=== PATIENT | female | born 1985 | race African-American/Black ===

== ENCOUNTER 2020-01-03 13:15 | Outpatient (CLI) | payer OTHER, SELFPAY ==
--- NOTE | ~2020-01-03 | US_ITS ---
EXAMINATION: US thyroid DATE: 01/03/2020 14:10 INDICATION: Multinodular goiter. TECHNIQUE: Multiple ultrasound images of the thyroid were obtained. COMPARISON: Ultrasound 10/29/2018 FINDINGS: The right thyroid lobe measures 5.1 x 0.8 x 1.7 cm. The left thyroid lobe measures 5.0 x 0.9 x 1.6 c m. There are multiple nodules in the thyroid measuring up to 4 mm. IMPRESSION: 1. Small thyroid nodules, likely not clinically significant. No follow-up is needed. Reviewed, dictated and finalized at location B. IMPRESSION: 1. Small thyroid nodules, likely not clinically significant. No follow-up is ne eded.
== END 2020-01-03 13:16 ==
PROVIDERS: Visit Provider Internal Medicine Endocrinology, Diabetes & Metabolism
DX: E04.2 Nontoxic multinodular goiter (principal)
CPT/HCPCS: 76536

== ENCOUNTER 2020-10-17 09:58 | Emergency (ER) | payer OTHER, SELFPAY ==
--- NOTE | ~2020-10-17 | US_ITS ---
EXAMINATION: US OB >= 14 weeks Fetus DATE: 10/17/2020 11:21 INDICATION: Left lower quadrant pain TECHNIQUE: Real-time ultrasound of the pelvis was performed. COMPARISON: None. FINDINGS: There is a single living fetus in breech presentation. The placenta is anterior. heart rate is 150 beats per minute (bpm). cardiac activity and movement are noted. The amniotic fluid index is subjectively normal. The right ovary measures 1.4 x 3.1 x 1.5 cm. The left ovary measures 1.8 x 3.5 x 1.9 cm and contains a cyst. There is normal vascular flow to the ovaries. The following biometric data were obtained: Biparietal diameter (BPD): 4.0 cm; head circumference (HC): 14.8 cm; abdominal circumference (AC): 12 .9 cm; femur length (FL): 2.4 cm. These measurements are concordant. Estimated weight is 220 g +/- 33 g, which correlates with the 88th percentile when 03/25/2021 i s used as estimated date of delivery. As single measurements, these parameters are each equal to the following estimated gestational ages w ith ranges of +/- 2 standard deviations: BPD: 18 weeks 1 days +/- 1 weeks 5 days. HC: 17 weeks 6 days +/- 1 weeks 1 days. AC: 18 weeks 3 days +/- 2 weeks 0 days. FL: 17 weeks 4 days +/- 1 weeks 3 days. estimated gestational age based solely on measurements from this exam is 18 weeks 0 days +/- 1 weeks 2 days. IMPRESSION: 1. Single living fetus in breech presentation. 2. Estimated weight is 220 g +/- 33 g, which correlates with the 88th percentile when is used as estimated date of delivery. 3. No sonographic correlate for the patient's symptoms. Reviewed, dictated and finalized at location A. IMPRESSION: 1. Single living fetus in breech presentation. 2. Estimated weight is 220 g +/- 33 g, which correlates with the 88th per centile when 03/25/2021 is used as estimated date of delivery. 3. No sonographic correlate for the patient's symptoms.
[2020-10-17 10:20] VITALS: BP 124/75; PULSE 76; RESP 18; TEMP 36.3; O2SAT 100
[2020-10-17 10:52] LABS: Add Urine Microscopic? YES; Appearance Urine Cloudy (Clear); Bacteria Urine Trace /hpf; Bilirubin Urine Negative (Negative); Blood Urine Negative (Negative); Color Urine Yellow (Yellow); Glucose Urine UA Negative (Negative); Ketones Urine Negative (Negative); Leukocyte Esterase Ur 2+ LEU/UL (Negative); Mucus Urine Rare /lpf; Nitrate Urine Negative (Negative); Protein Urine Negative (Negative); RBC Urine 0-2 /hpf (0-2); Specific Grav Ur 1.018 (1.001-1.035); Squamous Epithelial Cell Urine Many /hpf (Few); Urobilinogen Urine Negative mg/dL (<2.0)
[2020-10-17 11:11] LABS: Basophils Percent Auto 0.3 % (0.2-1.2); Eosinophils Absolute Auto 0.3 K/mm3 (0-0.3); Eosinophils Percent Auto 4.2 % (0-4.4); Hemoglobin 12.1 g/dL (12.0-15.0); Immature Granulocyte Absolute 0.04 K/mm3 (0.00-0.031); Immature Granulocyte Percent A 0.5 % (0-0.5); Lymphocytes Absolute Auto 1.75 K/mm3 (0.9-3.2); Lymphocytes Percent Auto 23.7 % (18.3-44.2); Mean Corpuscular HGB Conc 33.6 g/dl (32-36); Mean Corpuscular Hemoglobin 31.8 pg (26-34); Mean Corpuscular Volume 94.7 fl (80-100); Monocytes Absolute Auto 0.4 K/mm3 (0.1-0.6); Monocytes Percent Auto 5.2 % (2.6-8.5); Neutrophils Absolute Auto 4.9 K/mm3 (1.3-6.7); Neutrophils Percent Auto 66.1 % (45.5-73.1); Platelet Count Result 180 k/mm3 (150-375); Red Cell Distribution Width 12.6 % (11.5-14.5); White Blood Count 7.4 K/mm3 (4.5-10.0)
[2020-10-17 11:21] LABS: Anion Gap 7 mmol/L (8-16); Blood Urea Nitrogen 6 mg/dL (7-17); Calcium 9.6 mg/dL (8.4-10.2); Carbon Dioxide 25 mmol/L (22-30); Chloride 106 mmol/L (98-107); Estimated CRCL calculation 118 ml/min; Estimated Glomerular Filt Rate > 60; Glucose 85 mg/dL (65-105); Potassium 3.6 mmol/L (3.4-5.0); Sodium 138 mmol/L (137-145)
--- NOTE | 2020-10-17 11:56 | ED.GENADULT ---
HPI - General Adult General Chief complaint: Back Pain/Injury Stated complaint: PELVIC/LOWER BACK PAIN 17 WEEKS Time Seen by Provider: 10/17/20 10:35 Source: patient, family and RN notes reviewed Mode of arrival: ambulatory Limitations: no limitations History of Present Illness HPI narrative: Patient is a 35-year-old female who presents to emergency department for evaluation of low back pain has been present for little over a week she is [address] Troncoso. Patient has had an ultrasound for this confirming intrauterine . Patient is G3, P2. Patient denies injury or trauma any vaginal bleeding discharge urinary symptoms or recent illness or other complaints has been seeing her chiropractor and insight director for her pain and is currently taking only Tylenol for the discomfort Related Data Home Medications Medication Instructions Recorded Confirmed PNV,calcium 40-fnts-xprfw acid tablet 10/17/20 [ Vitamin Plus Low Iron] Review of Systems Review of Systems: All systems reviewed & are unremarkable except as noted in HPI and below PMFSH Social History Social History Gender identity (if verbalized by the patient): Female Exam Narrative: Exam Narrative: GENERAL: Well-appearing, well-nourished, and in no acute distress. HEAD: Normocephalic, atraumatic. EYES: PERRLA and EOMI. ENT: Nares clear, no rhinorrhea or epistaxis. Mucous membranes moist. CHEST: Clear to auscultation. No respiratory distress. No wheezes rales or rhonchi HEART: Regular rate and rhythm. No murmur heard. Normal peripheral pulses. ABDOMEN: Soft, nontender, distended, normal active bowel sounds. EXTREMITIES: Normal range of motion. No edema. Midline lumbar discomfort with no deformities SKIN: Warm, dry, no rash. NEURO: No focal deficits. Alert and oriented x3. Normal speech and gait PSYCH: Normal mood and affect. Course Course Emergency Course: Patient evaluated the emergency department no high risk changes in the evaluation discussion was made with her insight director who recommended a TENS unit and continued therapies and follow-up. Consultations Consultation #1: joseph insight director was made aware of the presentation and complaints of the patient will follow the patient in clinic recommends that a lidocaine patch can be given as well as a TENS unit and continue Tylenol Date: 10/17/20 Vital Signs Vital signs: Vital Signs Temperature 97.3 F L 10/17/20 10:20 Pulse Rate 76 10/17/20 10:20 Respiratory Rate 18 10/17/20 10:20 Blood Pressure 124/75 10/17/20 10:20 Pulse Oximetry 100 10/17/20 10:20 Temperature 97.3 F L 10/17/20 10:20 Pulse Rate 76 10/17/20 10:20 Respiratory Rate 18 10/17/20 10:20 Blood Pressure 124/75 10/17/20 10:20 Pulse Oximetry 100 10/17/20 10:20 Medical Decision Making MDM Narrative Medical decision making narrative: Patient evaluated for back pain no high risk changes in the evaluation had ultrasound and blood work and urinalysis will be discharged home with instructions given by her insight director agreeing to follow-up as instructed feels comfortable with this plan Vital Signs Vital Signs: Vital Signs Temperature 97.3 F L 10/17/20 10:20 Pulse Rate 76 10/17/20 10:20 Respiratory Rate 18 10/17/20 10:20 Blood Pressure 124/75 10/17/20 10:20 Pulse Oximetry 100 10/17/20 10:20 Temperature 97.3 F L 10/17/20 10:20 Pulse Rate 76 10/17/20 10:20 Respiratory Rate 18 10/17/20 10:20 Blood Pressure 124/75 10/17/20 10:20 Pulse Oximetry 100 10/17/20 10:20 Lab Data Result diagrams: 10/17/20 10:58 10/17/20 10:58 Labs: Lab Results 10/17/20 10/17/20 10/17/20 Range/Units 10:35 10:58 10:58 WBC 7.4 (4.5-10.0) K/mm3 RBC 3.80 L (4.2-5.4) M/mm3 Hgb 12.1 (12.0-15.0) g/dL Hct 36.0 L (37.0-47.0) % MCV 94.7 (80-100) fl
[2020-10-17 12:25] VITALS: BP 106/62; PULSE 76; RESP 16; O2SAT 100
== END 2020-10-17 12:25 | disposition home or self-care (01) ==
PROVIDERS: Emergency Medicine Emergency Medical Services; Emergency Provider Emergency Medicine
DX: M54.5 Low back pain (principal)
CPT/HCPCS: 36415; 76805; 80048; 81001; 85025; 99284

== ENCOUNTER 2021-01-18 16:05 | Observation (INO) | payer OTHER, SELFPAY ==
--- NOTE | ~2021-01-18 | US_ITS ---
. EXAMINATION: US OB limited DATE: 01/18/2021 17:22 INDICATION: Spotting. Third trimester. TECHNIQUE: Real-time ultrasound of the pelvis was performed. COMPARISON: None. FINDINGS: There is a single fetus in vertex presentation. The placenta is anterior. heart rate is 145 be ats per minute (bpm). The amniotic fluid volume is subjectively normal. The cervical length is greate r than 2.8 cm on transvaginal images. IMPRESSION: 1. Single living fetus in vertex presentation. 2. Normal cervical length. Reviewed, dictated and finalized at location A.
[2021-01-18 16:49] VITALS: BP 123/72; PULSE 78
[2021-01-18 16:50] VITALS: TEMP 36.5; BMI 34.5
--- NOTE | 2021-01-18 16:50 | OBADM ---
This patient, Aiyana Sanchez, admitted to the OB room 116 on 01/18/21 at 1605 for observation for cramping and vaginal spotting. Patient/family oriented to hospital policies and general routines including ID bracelet, bed and alarms, visiting hours, pain management, procedures, bathroom and other care routines, personal items, smoking policy, room service/diet, and visiting hours. Patient/Family are encouraged to report perceived risks to care and to ask questions if they do not understand what they are told or what they should do.
[2021-01-18 17:00] VITALS: BP 116/71; PULSE 79
[2021-01-18 17:17] LABS: Add Urine Microscopic? YES; Appearance Urine Clear (Clear); Bilirubin Urine Negative (Negative); Blood Urine 2+ (Negative); Color Urine Colorless (Yellow); Glucose Urine UA Negative (Negative); Ketones Urine Negative (Negative); Leukocyte Esterase Ur Negative LEU/UL (Negative); Nitrate Urine Negative (Negative); Protein Urine Negative (Negative); RBC Urine 0-2 /hpf (0-2); Specific Grav Ur 1.005 (1.001-1.035); Squamous Epithelial Cell Urine Rare /hpf (Few); Urobilinogen Urine Negative mg/dL (<2.0); WBC Urine 0-3 /hpf
--- NOTE | 2021-01-24 15:06 | PM.OBTRLD ---
OB - Triage/Final Diagnosis Visit Information Comments/Additional reasons for admission: I have assessed the risk for this patient, Aiyana Sanchez, and determined that she would benefit from observation care. Evaluation Laboratory results: Laboratory Tests 01/18/21 17:03 Urine Color Colorless Urine Appearance Clear Urine pH 7.0 Ur Specific [place] 1.005 Urine Protein Negative Urine Glucose (UA) Negative Urine Ketones Negative Ur Blood (Man) 2+ H Urine Nitrate Negative Urine Bilirubin Negative Urine Urobilinogen Negative Leukocyte Esterase Rfl Negative Urine RBC 0-2 Urine WBC 0-3 Ur Squamous Epith Cells Rare Final Diagnosis (1) Vaginal bleeding in : Code(s): O46.90 - Antepartum hemorrhage, unspecified, unspecified trimester Status: Acute
== END 2021-01-18 18:05 | disposition home or self-care (01) ==
PROVIDERS: Obstetrics & Gynecology; Admitting Provider Student in an Organized Health Care Education/Training Program; Visit Provider Student in an Organized Health Care Education/Training Program
DX: O26.853 Spotting complicating pregnancy, third trimester (principal); Z3A.30 30 weeks gestation of pregnancy
CPT/HCPCS: 76815; 81001; G0378; G0379

== ENCOUNTER 2021-03-09 12:04 | Outpatient (CLI) | payer OTHER, SELFPAY ==
[2021-03-09 12:30] VITALS: BP 137/74; PULSE 80
[2021-03-09 12:36] LABS: Basophils Percent Auto 0.2 % (0.2-1.2); Eosinophils Absolute Auto 0.2 K/mm3 (0-0.3); Hematocrit 38.9 % (37.0-47.0); Hemoglobin 12.7 g/dL (12.0-15.0); Immature Granulocyte Absolute 0.11 K/mm3 (0.00-0.031); Immature Granulocyte Percent A 1.4 % (0-0.5); Lymphocytes Absolute Auto 1.66 K/mm3 (0.9-3.2); Lymphocytes Percent Auto 20.5 % (18.3-44.2); Mean Corpuscular HGB Conc 32.6 g/dl (32-36); Mean Corpuscular Hemoglobin 31.4 pg (26-34); Mean Corpuscular Volume 96.3 fl (80-100); Mean Platelet Volume 12.4 fl (7.4-10.4); Monocytes Absolute Auto 0.4 K/mm3 (0.1-0.6); Monocytes Percent Auto 5.1 % (2.6-8.5); Neutrophils Absolute Auto 5.7 K/mm3 (1.3-6.7); Neutrophils Percent Auto 70.8 % (45.5-73.1); Platelet Count Result 151 k/mm3 (150-375); Red Blood Count 4.04 M/mm3 (4.2-5.4); Red Cell Distribution Width 13.3 % (11.5-14.5); White Blood Count 8.1 K/mm3 (4.5-10.0)
[2021-03-09 12:45] VITALS: BP 134/81; PULSE 85
[2021-03-09 12:48] LABS: Add Urine Microscopic? YES; Appearance Urine Cloudy (Clear); Bacteria Urine Trace /hpf; Bilirubin Urine Negative (Negative); Blood Urine Negative (Negative); Color Urine Yellow (Yellow); Glucose Urine UA Negative (Negative); Ketones Urine Negative (Negative); Leukocyte Esterase Ur 2+ LEU/UL (NEGATIVE); Mucus Urine Rare /lpf; Nitrate Urine Negative (Negative); Protein Urine Negative (Negative); RBC Urine 0-2 /hpf (0-2); Specific Grav Ur 1.008 (1.001-1.035); Squamous Epithelial Cell Urine Many /hpf (Few); Transitional Epi Cells Urine Rare /hpf (None Seen); Urobilinogen Urine Negative mg/dL (<2.0); WBC Urine 0-3 /hpf (0-3)
[2021-03-09 12:58] LABS: Alanine Aminotransferase 21 U/L (4-35); Alkaline Phosphatase 111 U/L (38-126); Anion Gap 7 mmol/L (8-16); Aspartate Amino Transferase 24 U/L (14-36); Bilirubin,Total 0.4 mg/dL (0.2-1.3); Blood Urea Nitrogen 6 mg/dL (7-17); Calcium 9.2 mg/dL (8.4-10.2); Carbon Dioxide 24 mmol/L (22-30); Chloride 106 mmol/L (98-107); Estimated Glomerular Filt Rate > 60; Glucose 117 mg/dL (65-110); Potassium 3.4 mmol/L (3.4-5.0); Sodium 137 mmol/L (137-145); Uric Acid 4.9 mg/dL (2.5-7.5)
[2021-03-09 13:00] VITALS: BP 128/84; PULSE 85
[2021-03-09 13:14] VITALS: BP 137/74; PULSE 87
[2021-03-09 13:15] VITALS: BP 128/78; PULSE 83
[2021-03-09 13:30] VITALS: BP 126/77; PULSE 74
[2021-03-09 15:00] LABS: Creatinine Urine 63.5 mg/dL; Total Protein Urine Random 14 mg/dL; Ur Ttl Prot Creatinine Ratio 0.22 mg/mg (0-0.20)
== END 2021-03-09 14:31 | disposition home or self-care (01) ==
LOC: ANHOBOP 12:09 → ANHOBPP 12:12
PROVIDERS: Visit Provider Student in an Organized Health Care Education/Training Program
DX: O13.9 Gestational [pregnancy-induced] hypertension without significant proteinuria, unspecified trimester (principal); Z3A.00 Weeks of gestation of pregnancy not specified
CPT/HCPCS: 36415; 59025; 80053; 81001; 82570; 84156; 84550; 85025; 87086; 87088; 99199

== ENCOUNTER 2021-03-25 10:04 | Outpatient (RCR) | payer OTHER, SELFPAY ==
--- NOTE | ~2021-03-25 | US_ITS ---
EXAMINATION: US OB limited EXAM DATE: 03/25/2021 11:20 INDICATION: RADHA- at term TERM . 3rd trimester. TECHNIQUE: Pelvic obstetrical transabdominal sonogram was performed by a technologist. There are mu ltiple grayscale and Doppler images available for interpretation. Comparison is made to prior examina tion from 01/18/2021. FINDINGS: There is a single fetus identified in vertex presentation with a heart rate of 136 beats pe r minute. The placenta is located in the anterior position. There is no sonographic evidence of retr oplacental hemorrhage identified. The amniotic fluid index is 16.4 centimeters, which is normal. IMPRESSION: 1. Single fetus in vertex presentation with heart rate 136 beats per minute. 2. Normal RADHA 16.4 cm. Reviewed, dictated and finalized at location A.
[2021-03-25 11:47] VITALS: BP 144/83; PULSE 90
== END 2021-04-09 10:35 | disposition home or self-care (01) ==
LOC: ANHOBOP 10:04
PROVIDERS: Visit Provider Student in an Organized Health Care Education/Training Program
DX: O26.893 Other specified pregnancy related conditions, third trimester (principal); Z3A.40 40 weeks gestation of pregnancy
CPT/HCPCS: 59025; 76815

== ENCOUNTER 2021-03-29 11:01 | Inpatient (IN) | payer OTHER, SELFPAY ==
[2021-03-29] VITALS (173 sets, daily range): BP systolic 117–169; BP diastolic 65–107; PULSE 63–159; TEMP 36.5–37.7; O2SAT 79–100; BMI 37.0
--- OUTSIDE RECORDS SUMMARY | 2021-03-29 11:08 | XMS_ITS ---
:1985 Author Care Team Providers Name Role Phone Rebeca Clarke Primary Care Provider Unavailable Allergies Code Code System Name Reaction Severity Status Onset NKDA ? Medications Name Status Start Date Stop Date ? ? buspirone 15 mg tablet Completed ? 9 TK 1/2 T PO BID nyitzsdpbz-nahbeevwhchab-nxvcucka 50 Completed ? 10/23/2018 mg-300 mg-40 mg capsule clindamycin HCl 300 mg capsule Completed ? 0 11/30/2019 TK 1 C PO Q 12 H FOR 7 DAYS colestipol 1 gram tablet Completed ? 020 TK 2 TS PO BID B MEALS cyclobenzaprine 10 mg tablet Completed ? dexamethasone 1 mg tablet Completed ? 2018 TK 1 T PO HS FOR 1 DAY PRN drospirenone 3 mg-ethinyl estradiol 0.02 mg tablet Completed ? 04/25/2020 TK 1 T PO QD ergocalciferol (vitamin D2) 1,250 mcg (50,000 unit) capsule Comp leted ? 04/25/2020 TK 1 C PO Q WK fluconazole 150 mg tablet Completed ? 2018 fluconazole 200 mg tablet Completed ? 2019 metformin ER 500 mg tablet,extended release 24 hr Active ? Not available TK 1 T PO BID B MEALS metformin ER 750 mg tablet,extended release 24 hr Completed ? 11/19/2018 TK 1 T PO QD WC metronidazole 500 mg tablet Completed ? 11/2019 TK 1 T PO Q 12 H FOR 7 DAYS naproxen 500 mg tablet Completed ? 9 nitrofurantoin monohydrate/macrocrystals 100 mg capsule Complete d ? 11/30/2019 TK 1 C PO BID FOR 5 DAYS
--- NOTE | 2021-03-29 11:44 | LDADM ---
This patient, Aiyana Sanchez, was admitted to Labor/Delivery/Recovery 108 on 03/29/21 at 11:01. Plans for labor, pain management and were discussed with patient. Patient/family oriented to hospital policies and general routines including ID bracelet, bed and alarms, visiting hours, pain management, procedures, bathroom and other care routines, personal items, smoking policy, room service/diet and guest tray routines, infant security routines, call light and visiting hours. Patient/Family are encouraged to report perceived risks to care and to ask questions if they do not understand what they are told or what they should do. See OBIX for further documentation.
[2021-03-29 11:49] LABS: Basophils Percent Auto 0.3 % (0.2-1.2); Eosinophils Absolute Auto 0.1 K/mm3 (0-0.3); Eosinophils Percent Auto 0.9 % (0-4.4); Hematocrit 41.3 % (37.0-47.0); Immature Granulocyte Absolute 0.17 K/mm3 (0.00-0.031); Immature Granulocyte Percent A 1.7 % (0-0.5); Lymphocytes Absolute Auto 2.88 K/mm3 (0.9-3.2); Lymphocytes Percent Auto 28.1 % (18.3-44.2); Mean Corpuscular HGB Conc 33.9 g/dl (32-36); Mean Corpuscular Hemoglobin 32.6 pg (26-34); Mean Corpuscular Volume 96.3 fl (80-100); Mean Platelet Volume 12.7 fl (7.4-10.4); Monocytes Absolute Auto 1.1 K/mm3 (0.1-0.6); Monocytes Percent Auto 10.3 % (2.6-8.5); Neutrophils Percent Auto 58.7 % (45.5-73.1); Platelet Count Result 160 k/mm3 (150-375); Red Blood Count 4.29 M/mm3 (4.2-5.4); Red Cell Distribution Width 13.8 % (11.5-14.5); White Blood Count 10.3 K/mm3 (4.5-10.0)
[2021-03-29] MEDS: LACTATED RINGERS 1,000 ML 125 ML IV CONT ×2 (12:00→13:35)
[2021-03-29] MEDS: OXYTOCIN 30 UNITS/NS 500 ML 30 UNITS/500 ML BAG IV CONT (12:01)
[2021-03-29] MEDS: AMPICILLIN 2 GM/NS 100 ML 2 GM/100 ML BAG IVPB (12:01)
[2021-03-29 12:06] LABS: Alanine Aminotransferase 20 U/L (4-35); Alkaline Phosphatase 144 U/L (38-126); Anion Gap 10 mmol/L (8-16); Aspartate Amino Transferase 25 U/L (14-36); Bilirubin,Total 0.5 mg/dL (0.2-1.3); Blood Urea Nitrogen 7 mg/dL (7-17); Calcium 10.1 mg/dL (8.4-10.2); Carbon Dioxide 20 mmol/L (22-30); Chloride 106 mmol/L (98-107); Estimated CRCL calculation 127 ml/min; Estimated Glomerular Filt Rate > 60; Glucose 66 mg/dL (65-110); Sodium 136 mmol/L (137-145)
[2021-03-29] MEDS: fentaNYL CITRATE INJ (*CRX) 100 MCG/2 ML VIAL 50 MCG IV PUSH (13:07)
--- NOTE | 2021-03-29 13:17 | WPDANESEPP ---
Anes - Eval Pre Procedure Procedure: labor Epidural Date/Time: 03/29/21 13:17 Surgeon: maría Preop Diagnosis: labor Pain Pre Op Diagnosis: induction of labor Patient Data Age: 35 Gender: F Height: 1.73 m Weight: 110.7 kg Last Vital Signs Pulse 79 03/29/21 13:00 BP 143/85 H 03/29/21 13:00 Pulse Ox 100 03/29/21 13:16 Allergies Allergy/AdvReac Type Severity Reaction Status Date / Time No Known Allergies Allergy Verified 03/22/21 09:26 Home Medications Medication Instructions Recorded Confirmed Type Vitamin Plus Low Iron 1 tablet PO DAILY 10/17/20 03/25/21 History famotidine 20 mg tablet 20 mg PO DAILY #30 tablet 02/15/21 03/25/21 Rx Laboratory Tests 03/29/21 03/29/21 03/29/21 11:21 11:21 11:21 WBC 10.3 K/mm3 H K/mm3 (4.5-10.0) RBC 4.29 M/mm3 M/mm3 (4.2-5.4) Hgb 14.0 g/dL g/dL (12.0-15.0) Hct 41.3 % % (37.0-47.0) MCV 96.3 fl fl (80-100) MCH 32.6 pg pg (26-34) MCHC 33.9 g/dl g/dl (32-36) RDW 13.8 % % (11.5-14.5) Plt Count 160 k/mm3 k/mm3 (150-375) MPV 12.7 fl H fl (7.4-10.4) Immature Gran % (Auto) 1.7 % H % (0-0.5) Neut % (Auto) 58.7 % % (45.5-73.1) Lymph % (Auto) 28.1 % % (18.3-44.2) [place] % (Auto) 10.3 % H % (2.6-8.5) Eos % (Auto) 0.9 % % (0-4.4) Baso % (Auto) 0.3 % % (0.2-1.2) Lymph # (Auto) 2.88 K/mm3 K/mm3 (0.9-3.2) [place] # (Auto) 1.1 K/mm3 H K/mm3 (0.1-0.6) Eos # (Auto) 0.1 K/mm3 K/mm3 (0-0.3) Baso # (Auto) 0.0 K/mm3 K/mm3 (0.0-0.1) Abs Immat Gran (auto) 0.17 K/mm3 H K/mm3 (0.00-0.031) Absolute Neuts (auto) 6.0 K/mm3 K/mm3 (1.3-6.7) Absolute Nucleated RBC 0.0 K/mm3 K/mm3 (0.0-0.012) Nucleated RBC % 0.0 % % (0.0-0.2) Sodium 136 mmol/L L mmol/L (137-145) Potassium 4.0 mmol/L mmol/L (3.4-5.0) Chloride 106 mmol/L mmol/L (98-107) Carbon Dioxide 20 mmol/L L mmol/L (22-30) Anion Gap 10 mmol/L mmol/L (8-16) BUN 7 mg/dL mg/dL (7-17) Creatinine 0.70 mg/dL mg/dL (0.7-1.0) Estim Creat Clear Calc 127 ml/min ml/min Estimated GFR > 60 (59 - ) Glucose 66 mg/dL mg/dL (65-110) Calcium 10.1 mg/dL mg/dL (8.4-10.2) Total Bilirubin 0.5 mg/dL mg/dL (0.2-1.3) AST 25 U/L U/L (14-36) ALT 20 U/L U/L (4-35) Alkaline Phosphatase 144 U/L H U/L (38-126) Total Protein 7.0 g/dL g/dL (6.3-8.2) Albumin 4.0 g/dL g/dL (3.5-5.1) RPR Pending : gestational age (JOMAR 03/25/21) Patient hx anesthesia problems: none Family hx anesthesia problems: none Results Review: All pre-operative results and documents have been reviewed as part of the pre-operative evaluation. [facility] Past Medical History Medical History Anxiety History of miscarriage Surgical History Surgical History S/P cholecystectomy Status post colposcopy [place] teeth removed Family History Family History Father Lung cancer Mother Hypertension Grandparent Diabetes mellitus Hypertension Social History Social History Smoking status: Never smoker Alcohol intake: never Substance use: never Gender identity (if verbalized by the patient): Female Spiritual care concerns: No Exam Day of Procedure 03/29/21 13:17 Patient weight: obese Heart: regular rate and rhythm Lungs: normal air movement Airway: Mallampati scale class II Neurological: alert and oriented
[2021-03-29 15:15] LABS: Creatinine Urine 94.8 mg/dL; Total Protein Urine Random 12 mg/dL; Ur Ttl Prot Creatinine Ratio 0.13 mg/mg (0-0.20)
[2021-03-29 15:19] LABS: Rapid Plasma Reagin Non-Reactive (NonReactive)
[2021-03-29] MEDS: AMPICILLIN 1 GM/NS 50 ML 1 GM/50 ML BAG IVPB ×2 (15:55→20:07)
--- NOTE | 2021-03-29 16:13 | PM.IMHP ---
H&P: HPI History of Present Illness Date/Time: 03/29/21 16:13 Patient is a 35-year-old . Last menstrual period 06/18/2020 currently 40w4 days gestation with JOMAR 03/25/21. Patient is dated by an ultrasound on 08/08/2020 at 7 weeks gestation. Patient was seen in office today for routine care. BP was elevated and patient was sent to L&D for IOL and further evaluation. She reported onset of lightheadedness and dizziness that began yesterday. States that she just started to feel unwell. Denies any chest pain, SOB, N/V, visual disturbances, or RUQ tenderness. Reports occ contractions. Denies any vaginal bleeding or leakage of fluid. Reports good movement. While on L&D, patient's BP still elevated. Labs, however, within normal limits at this time. Patient meets criteria for gestational hypertension. Chief Complaint: Intrauterine at 40w4d Gestational hypertension GBS positive Review of Systems Review of Systems: All systems reviewed & are unremarkable except as noted in HPI and below Constitutional: Constitutional: Reports as per HPI, Reports no additional constitutional complaints, Denies chills, Denies fever(s), Denies headache(s) and Denies night sweats Eyes: Eyes: Reports as per HPI and Reports no additional eye complaints ENT: Reports system reviewed and no additional complaints, except as documented, Reports as per HPI, Reports Normal hearing present and Denies headache(s) Cardiovascular: Cardiovascular: Reports as per HPI, Reports no additional cardiovascular complaints, Denies chest pain and Denies dyspnea Respiratory: Respiratory: Reports as per HPI, Reports no additional respiratory complaints, Denies cough and Denies dyspnea Gastrointestinal: Gastrointestinal: Reports as per HPI, Reports no additional gastrointestinal complaints, Denies abdominal pain, Denies change in bowel habits, Denies change in stool character, Denies nausea and Denies vomiting Genitourinary: Genitourinary: Reports no additional female genitourinary complaints, Reports as per HPI, Denies abnormal vaginal bleeding, Denies genital lesions, Denies hot flashes, Denies dyspareunia, Denies pelvic pain, Denies sexual dysfunction, Denies urinary incontinence, Denies vaginal discharge, Denies vaginal dryness and Denies vaginal odor Musculoskeletal: Musculoskeletal: Reports no additional musculoskeletal complaints and Reports as per HPI Integumentary/Breasts: Skin/Breast: Reports system reviewed and no additional complaints, except as docu, Reports as per HPI, Denies breast pain and Denies nipple discharge Neurologic: Reports system reviewed and no additional complaints, except as documented, Reports as per HPI, Reports Normal hearing present and Denies headache(s) Psychiatric: Psychiatric: Reports no additional psychiatric complaints, Reports as per HPI, Denies anxiety and Denies depression Endocrine: Endocrine: Reports no additional endocrine complaints and Reports as per HPI Hematologic/Lymphatic: Hematologic/Lymphatic: Reports no additional hematologic/lymphatic complaints and Reports as per HPI Allergic/Immunologic: Allergic/Immunologic: Reports no additional allergic/immunologic complaints and Reports as per HPI PMFSH Past Medical History Medical History Anxiety History of miscarriage Surgical History Surgical History S/P cholecystectomy Status post colposcopy [place] teeth removed Family History Family History Father Lung cancer Mother Hypertension Grandparent Diabetes mellitus Hypertension Social History Social History Smoking status: Never smoker Alcohol intake: never Substance use: never Gender identity (if verbalized by the patient): Female Spiritual care concerns: No Meds Home Medications
--- NOTE | 2021-03-29 16:31 | WPDHPUPDATE1 ---
History and Physical Update Update Date/Time: 03/29/21 16:31 History and Physical has been reviewed, including an updated exam of the patient. There are NO changes in the patient's condition. Risks, benefits, and alternatives have been discussed and questions answered. Patient agrees to proceed with procedure.
--- NOTE | 2021-03-29 17:43 | P.PNOB_ITS ---
Pain Control Date/time seen: 03/29/21 17:43 Patient doing well. Comfortable s/p epidural. SVE /-2. AROM, clear fluid noted. EFM category 1. [place] showed contractions every 2-3 mins. Continue pitocin.
--- NOTE | 2021-03-29 22:03 | PM.OBPRVD ---
OB - Delivery Note Procedure Delivery date: 03/29/21 Procedure: Patient is a 35-year-old now who was sent to L&D at 40w4d gestation from the office today for elevated blood pressure. Patient was diagnosed with gestational hypertension and decision was made to proceed with induction of labor. Patient was admitted to labor and delivery. Induction labor was started with Pitocin. Antibiotics were started for GBS prophylaxis. Pitocin was slowly titrated throughout the morning, afternoon, and evening. Patient became uncomfortable and requested an epidural for pain management which was placed without difficulty. Artificial rupture membranes was performed at 5:40 p.m. Clear amniotic fluid was noted. Patient made progressive cervical change and was found to be fully dilated at 9:20 p.m. Patient was encouraged to push and found to be pushing well. At 9:46 p.m., patient delivered head atraumatically and without difficulty in MARCY presentation. Occiput restituted to maternal right side. A nuchal cord x1 was noted and easily reduced. With subsequent push, the infant's neck, shoulders, and rest of body delivered without difficulty. Terminal meconium was noted. Infant was crying spontaneously. Nose and mouth were suctioned with bulb suction and was placed on maternal abdomen where care was assumed by awaiting nursing staff. Delayed cord clamping was performed for approximately 60 seconds. The cord was clamped and cut. A segment of cord was collected for cord gases. Cord blood was collected. The placenta was delivered spontaneously and intact. Uterine fundus was noted to be firm with massage. On inspection, a right periurethral abrasion was noted. This abrasion was not bleeding and did not require repair. Patient was cleansed and dried. Estimated blood loss for entire delivery was 150 cc. The was a live-born female , Apgars 9 and 9, weighing 8 lb 4 oz. Both mother and baby doing well at the end of delivery. events: Induced HTN and Labor Induction Induction method: per pitocin protocol Delivery augmentation: rupture of membranes Delivery monitor: external FHT and external uterine Route of delivery: Laceration Description: Periurethral (superficial right periurethral abrasion) Specimen: Yes (placenta and cord) Quantitative Blood Loss (ml): 150 Anesthesia type: Epidural Disposition: floor Complications: No immediate complications Baby Date of : 03/29/21 Time of : 21:46 Weeks of gestation at delivery: 40 (40.4) Infant gender: Female Weight (pounds): 8 Weight (ounces): 4 presentation: vertex position: Right Occiput Anterior Placenta delivery description: Spontaneous cord vessel description: 3 Vessels and Delayed Cord Clamping score one minute: 9 score five minutes: 9
[2021-03-29] MEDS: OXYTOCIN 30 UNITS/NS 500 ML 30 UNITS/500 ML BAG 125 UNITS IV CONT (22:23)
[2021-03-29] MEDS: IBUPROFEN 600 MG TABLET PO (22:47)
[2021-03-30] VITALS (8 sets, daily range): BP systolic 129–149; BP diastolic 78–88; PULSE 70–85; RESP 16–18; TEMP 36.3–37.1; O2SAT 98–100
[2021-03-30 04:55] LABS: Hematocrit 38.9 % (37.0-47.0)
--- NOTE | 2021-03-30 08:50 | PC.NURSE ---
Mother called out for assist with feeding, mother reports infant is feeding for long durations and continues to act hungry when away from breast. mother feels infant is latching correctly and without discomfort reporting slight tenderness. This is mother 3rd child last child is 11 years old. . is able to freely thrust tongue past gum ridge and flange both lips. Skin is intact on both nipples, no redness and bruising noted. Reviewed feeding cues, frequencies, duration of feedings, feeding elimination flow sheet, and signs of adequate intake. Demonstrated stimulation techniques to wake for feeding. Assisted with infant to breast. Reviewed positioning/alignment in cross cradle, holding breast in ?U? hold and guided asymmetrical latch on. Reviewed rational for each. able to latch correctly within a few attempts. Infant nursed eagerly with steady draws and occasional swallowing noted, with freq. pausing noted. Reviewed signs of a correct latch, effective nursing and suck swallow ratio. Suggested mother stimulate while feeding to increase stimulation for milk supply, for increased intake and to assist with maintaining deep latch. would slip to shallow latch with pausing causing tenderness. Demonstrated how to adjust latch more deeply while feeding if needed. Mother reports she can feel the difference in latch with no tenderness. Nipple care reviewed of lanolin after feedings, warm compresses as needed. Instructed mother to call out for RN assistance if she is unable to latch infant for feeding or she has discomfort with nursing. Instructed feeding should be initiated three hours from start of last feeding or if feeding cues are noted before. Mother voiced understanding of information shared.
[2021-03-30] MEDS: MULTIVIT/MIN/PREN/FOL AC/IRON TABLET 1 TAB PO (08:51)
[2021-03-30] MEDS: IBUPROFEN 600 MG TABLET PO ×3 (08:51→23:16)
--- NOTE | 2021-03-30 09:15 | PM.OBPNVD ---
OB - PN: Subj Subjective Date/time seen: 03/30/21 09:15 Patient doing well this AM. Reports cramping with . Denies any headache, chest pain, SOB, N/V, visual disturbances, or RUQ tenderness. Min-moderate lochia. Baby well. Ambulating without difficulty. OB - PN: Obj Data Labs CBC & Chem 7: 03/30/21 03:59 11 11:21 Labs: Laboratory Results - last 24 hr 03/29/21 03/29/21 03/29/21 11:21 11:21 11:21 WBC 10.3 H RBC 4.29 Hgb 14.0 Hct 41.3 MCV 96.3 MCH 32.6 MCHC 33.9 RDW 13.8 Plt Count 160 MPV 12.7 H Immature Gran % (Auto) 1.7 H Neut % (Auto) 58.7 Lymph % (Auto) 28.1 [place] % (Auto) 10.3 H Eos % (Auto) 0.9 Baso % (Auto) 0.3 Lymph # (Auto) 2.88 [place] # (Auto) 1.1 H Eos # (Auto) 0.1 Baso # (Auto) 0.0 Abs Immat Gran (auto) 0.17 H Absolute Neuts (auto) 6.0 Absolute Nucleated RBC 0.0 Nucleated RBC % 0.0 Sodium Potassium Chloride Carbon Dioxide Anion Gap BUN Creatinine Estim Creat Clear Calc Estimated GFR Glucose Calcium Total Bilirubin AST ALT Alkaline Phosphatase Total Protein Albumin U Random Total Protein Urine Creatinine Protein/Creat Ratio 2 RPR Non-reactive Blood Type A Positive Antibody Screen Negative 03/29/21 03/29/21 03/30/21 11:21 14:41 03:59 WBC RBC Hgb 13.0 Hct 38.9 MCV MCH MCHC RDW Plt Count MPV Immature Gran % (Auto) Neut % (Auto) Lymph % (Auto) [place] % (Auto) Eos % (Auto) Baso % (Auto) Lymph # (Auto) [place] # (Auto) Eos # (Auto) Baso # (Auto) Abs Immat Gran (auto) Absolute Neuts (auto) Absolute Nucleated RBC Nucleated RBC % Sodium 136 L Potassium 4.0 Chloride 106 Carbon Dioxide 20 L Anion Gap 10 BUN 7 Creatinine 0.70 Estim Creat Clear Calc 127 Estimated GFR > 60 Glucose 66 Calcium 10.1 Total Bilirubin 0.5 AST 25 ALT 20 Alkaline Phosphatase 144 H Total Protein 7.0 Albumin 4.0 U Random Total Protein 12 Urine Creatinine 94.8 Protein/Creat Ratio 2 0.13 RPR Blood Type Antibody Screen OB - PN A/P Assessment and Plan (1) Normal spontaneous vaginal delivery: Code(s): O80 - Encounter for full-term uncomplicated delivery Status: Acute Assessment and Plan: PPD#1 doing well continue routine care (2) Gestational hypertension: Code(s): O13.9 - Gestational [-induced] hypertension without significant proteinuria, unspecified trimester Status: Acute Assessment and Plan: BP still mildly elevated, however, no severe range BP will continue to monitor vitals and symptoms Time Spent With Patient Time: Total time spent is greater than 50% in coordination of care (as documented) at patient's floor/unit and/or counseling patient: Exam Const: General: cooperative, healthy appearing, comfortable and no acute distress GI: Inspection: non-distended GI Palp: Yes Soft to palpation and No Tenderness to palpation present (GI) Other: fundus firm below umbilicus Extrem: Right lower extremity: no edema Left lower extremity: no edema Other: no calf tenderness
[2021-03-30] MEDS: ACETAMINOPHEN 325 MG TABLET 650 MG PO (19:09)
[2021-03-31 00:33] VITALS: BP 141/82
[2021-03-31 05:00] VITALS: BP 135/76
[2021-03-31] MEDS: ACETAMINOPHEN 325 MG TABLET 650 MG PO ×2 (07:54→13:29)
[2021-03-31] MEDS: MULTIVIT/MIN/PREN/FOL AC/IRON TABLET 1 TAB PO (07:55)
[2021-03-31] MEDS: DOCUSATE SODIUM 100 MG CAPSULE PO (07:55)
[2021-03-31] MEDS: IBUPROFEN 600 MG TABLET PO ×2 (07:55→13:30)
[2021-03-31] MEDS: TETANUS,DIPHTHERIA,AC PERTUSSIS ADULT (0.5 ML) BOOSTRIX IM (07:58)
--- NOTE | 2021-03-31 09:55 | P.PNOB_ITS ---
OB - PN: Subj Subjective Date/time seen: 03/31/21 09:55 Patient reports feeling tired, otherwise, doing well. Denies any abdominal pain. Denies any headache, chest pain, SOB, N/V, visual disturbances, or RUQ tenderness. Ambulating without difficulty. Voiding well. OB - PN: Obj Data Labs CBC & Chem 7: 03/30/21 03:59 03/29/21 11:21 OB - PN A/P Assessment and Plan (1) Normal spontaneous vaginal delivery: Code(s): O80 - Encounter for full-term uncomplicated delivery Status: Acute Assessment and Plan: PPD#2 doing well dc home today in stable condition emergency precautions reviewed f/u in office in 1 week for BP check (2) Gestational hypertension: Code(s): O13.9 - Gestational [-induced] hypertension without significant proteinuria, unspecified trimester Status: Acute Time Spent With Patient Time: Total time spent is greater than 50% in coordination of care (as documented) at patient's floor/unit and/or counseling patient: Exam Const: General: cooperative, healthy appearing, comfortable and no acute dis tress GI: Inspection: non-distended GI Palp: Yes Soft to palpation and No Tenderness to palpation present (GI) Other: fundus firm below umbilicus Extrem: Right lower extremity: no edema Left lower extremity: no edema Other: no calf tenderness
--- NOTE | 2021-03-31 09:57 | P.DS_ITS ---
DS: Admitting Diagnosis Discharge Date 03/31/21 Admitting Diagnosis IUP at 40w4d Gestational hypertension OB - DS: Summary OB Procedures : PIH Mgmt OB Procedures Intrapartum: Spontaneous Vag Delivery OB Procedures: : None Time Spent with Patient Time attestation: Total time spent providing and/or coordinating discharge services: DS: Data Data Completed and Pending Pending studies at discharge: Pending at discharge 03/29/21 22:16 Surgical [PTH] Routine Discharge Plan Discharge Attending physician on discharge: Rochelle Palomino Discharging Clinician: Rochelle Palomino Anticipated Discharge Date/Time: 03/31/21 09:58 Patient Disposition: Home, Self-Care Activity: pelvic rest Diet: regular Discharge Instructions: Call office ([phone]) to schedule the following visits: 1. Blood pressure check in 1 week 2. visit in 4-6 weeks. You may take Ibuprofen 600mg every 6 hours as needed for pain. Pain medication may make you constipated. It may be helpful to take an [id number] stool softener, such as Colace and/or Senokot, along with the pain medication to help lessen constipation. You had elevated blood pressure during this hospitalization. I have sent a prescription to your pharmacy for a blood pressure cuff. Please use as directed and take your blood pressure at home twice per day. Record the measurements in a log and bring the log with you to your next office visit. If the top number (SBP) is >160 or the bottom number (DBP) is >110, you need to go to the emergency department or call the office immediately. Call office or go to ED for pain not controlled with medication, headache, chest pain, shortness of breath, fever, chills, persistent nausea or vomiting, severe abdominal pain, heavy vaginal bleeding >2 pads/hour, foul vaginal discharge or odor, or problems with your breasts. Patient Instructions: Antibiotic Form Stand Alone Forms: General Discharge Information Follow-up/Referrals: Rochelle Palomino MD [Physician] - Discharge Medications: New (DME) blood pressure monitor Kit See Rx Instructions .Route Qty: 1 RF: 0 Continued famotidine 20 mg tablet 20 mg PO DAILY Qty: 30 RF: 0 Vitamin Plus Low Iron 27 mg iron- 1 mg Tablet 1 tablet PO DAILY RF: 0 Date of admission: 03/29/21 11:01 Primary Care Provider: PHYSICIAN,MAGNETIC TESTING TECHNICIAN Admitting Provider: Rochelle Palomino Attending physician on admission: Rochelle Palomino Condition: Stable
[2021-03-31 10:40] VITALS: BP 142/91; PULSE 86; RESP 16; TEMP 36.3; O2SAT 99
[2021-03-31 13:30] VITALS: BP 136/89; PULSE 77
[2021-03-31] MEDS: WITCH HAZEL 40 PADS 1 PAD TOPICAL (13:30)
[2021-04-02 11:41] VITALS: BP 147/89; PULSE 70; RESP 20; TEMP 36.8; O2SAT 100
== END 2021-03-31 14:16 | disposition home or self-care (01) | DRG 807 ==
LOC: ANHLDR 11:06 → ANHOB2 03-30 03:20
PROVIDERS: Admitting Provider Student in an Organized Health Care Education/Training Program; Visit Provider Student in an Organized Health Care Education/Training Program
DX: O13.4 Gestational [pregnancy-induced] hypertension without significant proteinuria, complicating childbirth (principal); Z37.0 Single live birth; Z3A.40 40 weeks gestation of pregnancy; O99.824 Streptococcus B carrier state complicating childbirth; O62.3 Precipitate labor; Z23 Encounter for immunization
CPT/HCPCS: 36415; 80053; 82570; 84156; 85014; 85018; 85025; 86592; 86850; 86900; 86901; 88307; 90471; 90653; 90715; A9270; G0008; J0290; J2590; J2795; J3010; J7120

== ENCOUNTER 2021-10-18 15:03 | Outpatient (CLI) | payer OTHER, SELFPAY ==
--- NOTE | ~2021-10-18 | US_ITS ---
US thyroid INDICATION: Thyroid goiter TECHNIQUE: Real-time sonographic images of the thyroid gland were obtained. COMPARISON: Ultrasound dated 01/03/2020 FINDINGS: The right thyroid lobe measures 4.7 x 1.2 x 1.9 cm. The left thyroid lobe measures 4.4 x 1 x 2.1 cm. There is normal echotexture and echogenicity throughout the thyroid gland. In the right lo be there is a stable 4 mm hypoechoic mass, likely benign, unchanged. In the left lobe there is a stab le 3-4 mm hypoechoic mass with internal calcification, also likely benign. Normal vascular flow is pr esent. IMPRESSION: 1. Stable benign-appearing bilateral thyroid nodules. No significant interval change.. Reviewed, dictated and finalized at location A.
== END 2021-10-18 15:04 ==
PROVIDERS: PCP Internal Medicine Endocrinology, Diabetes & Metabolism; Visit Provider Internal Medicine Endocrinology, Diabetes & Metabolism
DX: E04.9 Nontoxic goiter, unspecified (principal)
CPT/HCPCS: 76536

== ENCOUNTER 2022-10-16 08:48 | Outpatient (CLI) | payer OTHER, SELFPAY ==
--- NOTE | 2022-11-05 08:25 | WPDHOMESLEEP ---
Sleep Study - Home Unattended Date of Study: 10/16/22 Ordering Provider: Ema Dykes, NEUROLOGY PHYSICIAN Interpreting Provider: Jennifer Vyas MD Home Sleep Study Type: Watch PAT Height: 1.73 m Weight: 99.79 kg Body Mass Index: 33.4 Neck Circumference (inches): 16.75 Breeding: 7 Reason for Sleep Study Snoring, waking up coughing and choking Sleep History Tamika Sanchez is a 37-year-old female with history of loud snoring, coughing and choking on waking who is having a home sleep test for concerns regarding obstructive sleep apnea. She is prediabetic, she is insulin resistant and has polycystic ovary syndrome. She frequently awakens from sleep short of breath. She frequently awakens at night with heartburn, belching or cough.??She constantly snores, constantly snores loudly enough that others complain. She Occasionally has trouble sleeping when she has a cold. She constantly suddenly wakes up gasping for breath during the night. She occasionally has breathing problems at night observed by others. She rarely sweats excessively at night. She frequently notices her heart pounding or beating irregularly during the night. She never falls asleep during the day. She never falls asleep while driving. She never experiences loss of muscle tone with strong emotion. She never feels paralyzed on waking or falling asleep. She rarely experiences vivid dreams upon waking or falling asleep. She never feels afraid of going to sleep. She rarely has nightmares. She occasionally recalls her dreams. She frequently has thoughts racing through her mind. She rarely feels sad or depressed. She frequently feels anxiety or worries about things. She rarely notices parts of her body jerk. She never kicks during the night. She rarely feels crawling or aching feelings in her legs. She rarely feels leg pain at night. She rarely grinds her teeth, is not sure; she occasionally has morning jaw pain. She never feels bothered by pain during the day, never is awakened by pain during the night. She rarely wakes up feeling stiff, sore, and achy in the morning with pain in her neck, spine, or joints. ? ? Normal bedtime is around 9:00 p.m. to 10:00 p.m. , taking about 10 minutes fall asleep. She typically gets about 6-7 hours of sleep per night. Her wake up time is 5:30 a.m. on weekends bedtime is the same, between 9:00 p.m. and 10:00 p.m., waking at 6:00 a.m., very similar. She wakes once at night for a few minutes but is easily able to return to sleep. She goes to the bathroom and checks on her baby while she is awake. She is always tired so she does not go out socially. She does not take naps in the afternoon or evening. A short nap lasting 10 or 15 minutes is not refreshing. She is usually drowsy for 3 hours after waking. She feels better in the morning compared to other times of day. Habits:??Tobacco: Occasionally vapes, no cigarette. Caffeine 1 per day. Alcohol 1 drink every 2 weeks Recreational substances:none PMFSH Past Medical History Medical History Anxiety History of miscarriage Surgical History Surgical History S/P cholecystectomy Status post colposcopy [place] teeth removed Family History Family History Father Lung cancer Mother Hypertension Grandparent Diabetes mellitus Hypertension Social History Social History Smoking status: Never smoker Alcohol intake: never Substance use: never Gender identity (if verbalized by the patient): Female Spiritual care concerns: No Medications Home Medications Medication Instructions Recorded Confirmed Type vitamin with calcium 1 tablet PO DAILY 10/17/20 03/25/21 History no.72-iron 27 mg-folic acid 1 mg tablet ( Vitamins Plus Lo
[2022-11-07 13:33] VITALS: BMI 33.4
== END 2022-10-23 14:37 | disposition home or self-care (01) ==
LOC: ANHCSM 08:49
PROVIDERS: PCP Internal Medicine Endocrinology, Diabetes & Metabolism; Visit Provider Nurse Practitioner Family
DX: G47.10 Hypersomnia, unspecified (principal); E88.81 Metabolic syndrome and other insulin resistance; E28.2 Polycystic ovarian syndrome
CPT/HCPCS: 95800

== ENCOUNTER 2023-02-10 11:13 | Emergency (ER) | payer OTHER, SELFPAY ==
[2023-02-10] VITALS (10 sets, daily range): BP systolic 124–162; BP diastolic 71–99; PULSE 76–94; RESP 14–17; TEMP 36.7; O2SAT 100
--- NOTE | ~2023-02-10 | XR_ITS ---
EXAMINATION: XR chest 2V DATE: 02/10/2023 11:46 INDICATION: Left-sided chest pain TECHNIQUE: PA and lateral views of the chest were obtained. COMPARISON: None FINDINGS: The lungs are clear with no focal airspace opacities, pulmonary edema, pleural effusion or pneumothor ax. The cardiomediastinal silhouette is normal. Cholecystectomy clips in the right upper quadrant. [place] una are unremarkable. IMPRESSION: 1. No acute cardiopulmonary disease. Reviewed, dictated and finalized at location A.
--- NOTE | 2023-02-10 11:18 | ECG_ITS ---
Measurements Intervals [place] Rate: 84 P: 35 NH: 181 QRS: 39 QRSD: 85 T: 10 QT: 351 QTc: 415 Interpretive Statements SINUS RHYTHM LOW QRS VOLTAGE IN PRECORDIAL LEADS BASELINE WANDER- V6 BORDERLINE ECG NO PREVIOUS ECG AVAILABLE FOR COMPARISON Electronically Signed On 02-10-2023 11:34:10 CDT by Joaquin Gonzales D.O.
[2023-02-10 11:42] LABS: Basophils Percent Auto 0.6 % (0.2-1.2); Eosinophils Absolute Auto 0.2 K/mm3 (0-0.3); Eosinophils Percent Auto 3.2 % (0-4.4); Hematocrit 42.4 % (37.0-47.0); Hemoglobin 14.1 g/dL (12.0-15.0); Immature Granulocyte Absolute 0.02 K/mm3 (0.00-0.031); Immature Granulocyte Percent A 0.4 % (0-0.5); Lymphocytes Absolute Auto 2.36 K/mm3 (0.9-3.2); Lymphocytes Percent Auto 44.5 % (18.3-44.2); Mean Corpuscular HGB Conc 33.3 g/dl (32-36); Mean Corpuscular Hemoglobin 31.5 pg (26-34); Mean Corpuscular Volume 94.6 fl (80-100); Monocytes Absolute Auto 0.3 K/mm3 (0.1-0.6); Monocytes Percent Auto 5.8 % (2.6-8.5); Neutrophils Absolute Auto 2.4 K/mm3 (1.3-6.7); Neutrophils Percent Auto 45.5 % (45.5-73.1); Platelet Count Result 191 k/mm3 (150-375); Red Blood Count 4.48 M/mm3 (4.2-5.4); Red Cell Distribution Width 12.5 % (11.5-14.5); White Blood Count 5.3 K/mm3 (4.5-10.0)
[2023-02-10 11:52] LABS: Alanine Aminotransferase 44 U/L (6-35); Albumin Level 4.2 g/dL (3.5-5.1); Alkaline Phosphatase 58 U/L (38-126); Anion Gap 7 mmol/L (8-16); Aspartate Amino Transferase 28 U/L (14-36); Bilirubin,Total 0.6 mg/dL (0.2-1.3); Blood Urea Nitrogen 8 mg/dL (7-17); Calcium 9.1 mg/dL (8.4-10.2); Carbon Dioxide 25 mmol/L (22-30); Chloride 105 mmol/L (98-107); Estimated CRCL calculation 81 ml/min; Estimated Glomerular Filt Rate > 60; Glucose 94 mg/dL (65-110); Lipase 46 U/L (23-300); Potassium 3.3 mmol/L (3.4-5.0); Sodium 137 mmol/L (137-145)
[2023-02-10 11:58] LABS: Prothrombin Time 13.9 Seconds (11.1-14.7)
[2023-02-10 11:59] LABS: Partial Thromboplastin Time 28.1 SECONDS (22.3-36.8)
[2023-02-10 12:03] LABS: Troponin I < 0.012 ng/mL (0.000-0.034)
--- NOTE | 2023-02-10 12:53 | ED.CHESTPAIN ---
HPI - Chest Pain General Chief Complaint: Chest Pain Stated Complaint: Left sided chest pain Time Seen by Provider: 02/10/23 12:06 History of Present Illness HPI narrative: Patient is a 37-year-old female with a history of anxiety, PCOS presenting with chest pain. Patient states that for about the last week she has had left-sided chest pain. States that it is worse with deep breathing and certain movements. She called her doctor today who recommended she come in to the ER. States that she has had some nasal congestion lately but no cough or significant shortness of breath. No fevers or chills, abdominal pain, vomiting, diarrhea, dysuria, leg swelling. Related Data Home Medications Medication Instructions Recorded Confirmed vitamin with calcium 1 tablet PO DAILY 10/17/20 03/25/21 no.72-iron 27 mg-folic acid 1 mg tablet ( Vitamins Plus Low Iron) propranolol 10 mg tablet 10 mg PO Q12H PRN 03/05/22 Allergies Allergy/AdvReac Type Severity Reaction Status Date / Time No Known Allergies Allergy Verified 02/10/23 11:36 Review of Systems Review of Systems: All systems reviewed & are unremarkable except as noted in HPI and below PMFSH Past Medical History Medical History Anxiety History of miscarriage Surgical History Surgical History S/P cholecystectomy Status post colposcopy [place] teeth removed Family History Family History Father Lung cancer Mother Hypertension Grandparent Diabetes mellitus Hypertension Social History Social History Smoking status: Never smoker Alcohol intake: never Substance use: never Gender identity (if verbalized by the patient): Female Spiritual care concerns: No Exam Narrative: GENERAL: Well-appearing, well-nourished, and in no acute distress. Pleasant and cooperative HEAD: Normocephalic, atraumatic. EYES: PERRLA and EOMI. ENT: Mucous membranes moist. NECK: Supple. CHEST: Clear to auscultation. No respiratory distress. +left lower anterior chest wall tenderness HEART: Regular rate and rhythm. ABDOMEN: Soft, nontender, nondistended EXTREMITIES: Normal range of motion. No edema. SKIN: Warm, dry, no rash. NEURO: No focal deficits. Alert and oriented x3. PSYCH: Normal mood and affect. Course Vital Signs Vital signs: Vital Signs Temperature 98.1 F 02/10/23 11:21 Pulse Rate 88 02/10/23 11:21 Respiratory Rate 17 02/10/23 11:21 Blood Pressure 162/99 H 02/10/23 11:21 Pulse Oximetry 100 02/10/23 11:21 Oxygen Delivery Room Air 02/10/23 11:21 Temperature 98.1 F 02/10/23 11:21 Pulse Rate 80 02/10/23 14:10 Respiratory Rate 16 02/10/23 14:10 Blood Pressure 124/71 02/10/23 14:10 Pulse Oximetry 100 02/10/23 14:10 Oxygen Delivery Room Air 02/10/23 11:36 MDM - Chest Pain MDM Narrative Medical decision making narrative: Patient is a 37-year-old female presenting with left-sided chest pain. Patient is hypertensive, otherwise vitals are within normal limits. Exam remarkable for the above. EKG per my interpretation shows normal sinus rhythm, normal axis and intervals, no ST elevations or depressions. Blood work with mild hypokalemia which will be repleted orally. Troponin is undetectable. D-dimer within normal limits. Patient is negative for influenza and COVID. Chest x-ray without acute abnormalities. Discussed the reassuring work-up with the patient and advised PCP follow-up. Feel she is safe for outpatient management. Appropriate return precautions given. Discharged in stable condition. Differential Diagnosis Differential diagnosis: Likely stable angina, atypical chest pain, costochondritis and chest pain Medical Records Data Attestation: I reviewed the mele
[2023-02-10 13:18] LABS: D Dimer < 0.27 ug/mL (<0.48)
[2023-02-10] MEDS: KETOROLAC 30 MG/ML VIAL (*BKC) IV PUSH (13:23)
[2023-02-10] MEDS: SODIUM CHLORIDE 0.9% IV 1,000 ML 999 ML IV CONT (13:23)
[2023-02-10 13:44] LABS: Influenza A QL RT-PCR Negative (Negative); Influenza B QL RT-PCR Negative (Negative); SARS-CoV-2 RNA PCR Negative (Negative)
[2023-02-10] MEDS: POTASSIUM CHLORIDE 20 MEQ ER TABLET 40 MEQ PO (14:08)
== END 2023-02-10 14:16 | disposition home or self-care (01) ==
PROVIDERS: Preventive Medicine Aerospace Medicine; Emergency Provider Emergency Medicine
DX: R07.89 Other chest pain (principal); E28.2 Polycystic ovarian syndrome; Z90.49 Acquired absence of other specified parts of digestive tract; Z86.16 Personal history of COVID-19; R94.31 Abnormal electrocardiogram [ECG] [EKG]
CPT/HCPCS: 36415; 71046; 80053; 83690; 84484; 85025; 85380; 85610; 85730; 87636; 93005; 96361; 96374; 99284; A9270; J1885; J7030

== ENCOUNTER 2024-03-22 14:39 | Outpatient (RCR) | payer OTHER, SELFPAY ==
[2024-03-22 14:54] VITALS: BMI 36.1
[2024-03-22 14:58] VITALS: BMI 36.1
== END 2024-06-07 10:10 | disposition home or self-care (01) ==
LOC: ANHDMC 14:39
PROVIDERS: Visit Provider Obstetrics & Gynecology
DX: Z71.3 Dietary counseling and surveillance (principal); R73.03 Prediabetes; I10 Essential (primary) hypertension; E66.3 Overweight
CPT/HCPCS: 97802